=== PATIENT | male | born 1985 | race Caucasian/White ===

== ENCOUNTER 2021-11-12 15:54 | Emergency (ER) | payer OTHER ==
[2021-11-12] MEDS ORDERED: VIBRAMYCIN100 MG PO (18:22)
[2021-11-12] MEDS ORDERED: PERCOCET 5-3251 EACH PO (18:22)
== END 2021-11-12 18:29 | disposition home or self-care (01) ==
LOC: FER 15:54
DX: S61.411A Laceration without foreign body of right hand, initial encounter (principal); Z23 Encounter for immunization; X58.XXXA Exposure to other specified factors, initial encounter; Y92.009 Unspecified place in unspecified non-institutional (private) residence as the place of occurrence of the external cause
CPT/HCPCS: 73130; 90471; 90714; 96372; J1170